=== PATIENT | female | born 1930 | race Caucasian/White ===

== ENCOUNTER 2018-03-14 21:43 | Observation (INO) | payer MEDICARE, MEDICAID ==
--- NOTE | 2018-03-14 21:59 | C.PDOC ---
History Of Present Illness Patient presents to the ER with a complaint of not feeling well. She states the nurse at daycare checked her blood pressure and noticed it was 220/120. Patient took her diovan and amlodipine ER TECH, she notes she feels better here in the ER. Patient also states she has an Rx for an echo which she wants done here. Denies chest pain, SOB, nausea, or vomiting. Time Seen by Provider: 03/14/18 21:58 Chief Complaint (Nursing): High Blood Pressure History Per: Patient History/Exam Limitations: no limitations Onset/Duration Of Symptoms: Hrs Current Symptoms Are (Timing): Still Present Associated Symptoms: denies: Chest Pain, Dyspnea, Dizziness, Blurred Vision, Focal Weakness, Headache Quality Of Symptoms: Asymptomatic Severity: Moderate Pain Scale Rating Of: 4 Exacerbating Factor(s): Pos: None Recent travel outside of the [place]: No Additional History Per: Patient Past Medical History Reviewed: Historical Data, Nursing Documentation, Vital Signs Vital Signs: Last Vital Signs Temp 98 F 03/14/18 21:52 Pulse 72 03/14/18 22:00 Resp 14 03/14/18 21:52 BP 171/84 H 03/14/18 21:52 Pulse Ox 98 03/14/18 22:56 - Medical History PMH: HTN Surgical History: No Surg Hx Family History: States: No Known Family Hx - Social History Hx Alcohol Use: No Hx Substance Use: No Review Of Systems Constitutional: Negative for: Fever, Chills Eyes: Negative for: Vision Change ENT: Negative for: Throat Pain Cardiovascular: Negative for: Chest Pain, Palpitations Respiratory: Negative for: Cough, Shortness of Breath Gastrointestinal: Negative for: Nausea, Vomiting Genitourinary: Negative for: Dysuria Musculoskeletal: Negative for: Back Pain Skin: Negative for: Rash Neurological: Negative for: Weakness, Numbness Psych: Positive for: Anxiety Physical Exam - Physical Exam Appears: Non-toxic, No Acute Distress Skin: Warm, Dry Head: Normacephalic Eye(s): bilateral: Normal Inspection Oral Mucosa: Moist Neck: Supple Chest: Symmetrical, No Tenderness Cardiovascular: Rhythm Regular Respiratory: No Rales, No Rhonchi, No Wheezing Gastrointestinal/Abdominal: Soft, No Tenderness Back: Normal Inspection Extremity: No Tenderness Extremity: Bilateral: Atraumatic Pulses: Left Dorsalis Pedis: Normal, Right Dorsalis Pedis: Normal Neurological/Psych: Oriented x3 Gait: Steady ED Course And Treatment - Laboratory Results Result Diagrams: 03/14/18 23:01 03/14/18 23:01 ECG: Interpreted By Me, Viewed By Me ECG Rhythm: Sinus Rhythm (58), Nonspecific Changes O2 Sat by Pulse Oximetry: 98 (Room air) Pulse Ox Interpretation: Normal - Radiology CXR: Interpreted by Me, Viewed By Me CXR Interpretation: No: Infiltrates, Fracture, Pnemothorax Disposition Discussed With Dr.: Tremayne Bingham Comment: accepted the pt on his service and took over the care at 11:56 PM Counseled Patient/Family Regarding: Studies Performed, Diagnosis - Disposition Disposition: HOSPITALIZED Disposition Time: 21:59 Condition: FAIR Forms: [facility] (Romansh) - POA Present On Arrival: Poor Glycemic Control - Clinical Impression Clinical Impression: HTN (hypertension), CHF (congestive heart failure), Hypokalemia, Hyponatremia - Scribe Statement The provider has reviewed the documentation as recorded by the Scribe Roly Levy All medical record entries made by the Scribe were at my direction and personally dictated by me. I have reviewed the chart and agree that the record accurately reflects my personal performance of the history, physical exam, medical decision making, and the department course for this patient. I have also personally directed, reviewed, and agree with the discharge instructions and disposition. Decision To Admit - Pt Status Changed To: Hospital Disposition Of: Observation - . Bed Request Type: Telemetry Admitting Physician: Tremayne Bingham Patient Diagnosis: HTN (hypertension), CHF (congestive heart failure), Hypokalemia, Hyponatremia
[2018-03-14 23:04] LABS: BASO # 0.1 K/uL (0.0-0.2); BASO % 0.6 % (0.0-2.0); EOS # 0.2 K/uL (0.0-0.7); EOS % 2.2 % (0.0-4.0); HEMOGLOBIN 11.5 g/dL (11.0-16.0); LYMPH # 1.6 K/uL (1.0-4.3); LYMPH % 16.4 % (20.0-40.0); MEAN CORPUSCULAR HEMOGLOBIN 30.4 pg (27.0-31.0); MEAN CORPUSCULAR HGB CONC 33.7 g/dL (33.0-37.0); MEAN PLATELET VOLUME 8.3 fL (7.2-11.7); MONO # 2.5 K/uL (0.0-0.8); MONO % 26.1 % (0.0-10.0); NEUT # 5.2 K/uL (1.8-7.0); NEUT % 54.7 % (50.0-75.0); PLATELET COUNT 257 K/uL (130-400); RBC 3.78 Mil/uL (3.80-5.20); WHITE BLOOD COUNT 9.6 K/uL (4.8-10.8)
[2018-03-14 23:12] LABS: INR 1.1; PROTHROMBIN TIME 11.5 SECONDS (9.7-12.2)
[2018-03-14 23:18] LABS: ALB/GLOB RATIO 1.3 (1.0-2.1); ALBUMIN 4.4 g/dL (3.5-5.0); ALT/SGPT 16 U/L (9-52); AST/SGOT 19 U/L (14-36); BLOOD UREA NITROGEN 14 mg/dL (7-17); CALCIUM 8.7 mg/dl (8.6-10.4); GFR AFRICAN-AMERICAN > 60; GFR NON-AFRICAN AMERICAN 59; LIPASE 89 U/L (23-300)
[2018-03-14] MEDS ORDERED: Potassium Chloride 10 mEq ER Tab PO STA (23:21)
[2018-03-14 23:25] LABS: SQUAMOUS EPITHIAL < 1 /hpf (0-5); URINE BACTERIA RARE (<OCC); URINE BILIRUBIN NEGATIVE (NEGATIVE); URINE BLOOD 1+ (NEGATIVE); URINE CLARITY Clear (Clear); URINE COLOR Colorless (YELLOW); URINE GLUCOSE (UA) NORMAL (Normal); URINE LEUKOCYTE ESTERASE NEG Leu/uL (Negative); URINE PROTEIN NEGATIVE (NEGATIVE); URINE UROBILINOGEN NORMAL mg/dL (0.2-1.0)
[2018-03-14 23:30] LABS: B-TYPE NATRIURETIC PEPTIDE 2050 pg/mL (0-900)
[2018-03-14] MEDS ORDERED: Potassium Chloride 10 mEq ER Tab PO ONE (23:36)
[2018-03-15] MEDS ORDERED: Potassium Chloride 10 mEq ER Tab PO ONE (00:25)
[2018-03-15 01:14] LABS: ANISOCYTOSIS SLIGHT; EOSINOPHIL 3 % (0-4); LYMPHOCYTE 17 % (20-40); MONOCYTE 27 % (0-10); NEUTROPHIL 53 % (50-75); PLATELET ESTIMATE NORMAL (NORMAL); POIKILOCYTOSIS SLIGHT; TOTAL CELLS COUNTED 100
[2018-03-15 03:23] VITALS: RESP 20
[2018-03-15 05:43] LABS: CK-MB 1.15 ng/mL (0.0-3.38)
[2018-03-15 09:00] LABS: BLOOD UREA NITROGEN 14 mg/dL (7-17); CALCIUM 8.4 mg/dl (8.6-10.4); GFR AFRICAN-AMERICAN > 60; GFR NON-AFRICAN AMERICAN 59
[2018-03-15] MEDS: (Novolog) Insulin Aspart, Recombinant 100 u/ml 10 ml vial SC SCH ×4 (09:20→21:56)
[2018-03-15] MEDS ORDERED: Potassium Chloride 20 mEq ER Tab PO ONE (10:30)
[2018-03-15] MEDS: Enoxaparin 40 mg Syringe SC SCH (10:34)
--- NOTE | 2018-03-15 11:14 | RAD ---
Date of service: 03/14/2018 PROCEDURE: CHEST RADIOGRAPH, 1 VIEW HISTORY: SOB COMPARISON: None available. FINDINGS: LUNGS: Prominence of the interstitial markings, likely chronic. No focal consolidate. PLEURA: No pneumothorax or pleural fluid seen. CARDIOVASCULAR: Atherosclerotic aortic calcifications. Cardiomediastinal silhouette enlarged. OSSEOUS STRUCTURES: Degenerative changes. VISUALIZED UPPER ABDOMEN: Normal. OTHER FINDINGS: None. IMPRESSION: No active disease.
[2018-03-15 11:59] LABS: CK-MB 1.13 ng/mL (0.0-3.38); TROPONIN I 0.02 ng/mL (0.00-0.120)
[2018-03-16] MEDS: (Novolog) Insulin Aspart, Recombinant 100 u/ml 10 ml vial SC SCH ×2 (07:18→11:52)
--- NOTE | 2018-03-16 07:35 | CP.PCM.HP ---
History of Present Illness - History of Present Illness History of Present Illness: Chief Complaint: High Blood Pressure History Of Present Illness Patient presents to the ER with a complaint of not feeling well. She states the nurse at daycare checked her blood pressure and noticed it was 220/120. 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 Patient also states she has an Rx for an echo which she wants done here. Denies chest pain, SOB, nausea, or vomiting. Past Patient History - Past Medical History & Family History Past Medical History?: Yes - Past Social History Smoking Status: Never Smoked - CARDIAC Hx Hypercholesterolemia: Yes Hx Hypertension: Yes - PULMONARY Hx Bronchitis: Yes Hx Pneumonia: Yes - NEUROLOGICAL Hx Neurological Disorder: No - HEENT Hx Glaucoma: Yes - RENAL Hx Chronic Kidney Disease: No - ENDOCRINE/METABOLIC Hx Diabetes Mellitus Type 2: Yes Hx Hyperthyroidism: Yes - HEMATOLOGICAL/ONCOLOGICAL Hx Blood Disorders: No - INTEGUMENTARY Hx Dermatological Problems: No - MUSCULOSKELETAL/RHEUMATOLOGICAL Hx Osteoarthritis: Yes - GASTROINTESTINAL Hx Gastrointestinal Disorders: No - GENITOURINARY/GYNECOLOGICAL Hx Genitourinary Disorders: No - PSYCHIATRIC Hx Anxiety: Yes Hx Substance Use: No - SURGICAL HISTORY Hx Cataract Extraction: Yes ([facility]. Cataract Extraction.) Other/Comment: Left Breast Lumpectomy. - ANESTHESIA Hx Anesthesia: Yes Hx Anesthesia Reactions: No Hx Malignant Hyperthermia: No Has any member of the family had a problem w/ anesthesia?: No Meds Allergies/Adverse Reactions: Allergies Allergy/AdvReac Type Severity Reaction Status Date / Time No Known Allergies Allergy Unverified 03/14/18 21:57 Results - Vital Signs Recent Vital Signs: Last Vital Signs Temp 98.1 F 03/16/18 04:00 Pulse 61 03/16/18 04:00 Resp 20 03/16/18 04:00 BP 91/49 L 03/16/18 04:00 Pulse Ox 95 03/16/18 04:00 - Labs Result Diagrams: 03/14/18 23:01 03/15/18 05:06 Labs: Laboratory Results - last 24 hr 03/15/18 03/15/18 03/15/18 05:06 06:46 11:21 Sodium 132 Potassium 3.2 L Chloride 95 L Carbon Dioxide 24 Anion Gap 16 BUN 14 Creatinine 0.9 Est GFR ( Amer) > 60 Est GFR (Non-Af Amer) 59 POC Glucose (mg/dL) 124 H Random Glucose 110 H Calcium 8.4 L Magnesium 1.7 Total Creatine Kinase 100 100 CK-MB (Mass) 1.15 1.13 Troponin I 0.0230 0.0200 03/15/18 03/15/18 03/15/18 12:01 17:19 21:30 Sodium Potassium Chloride Carbon Dioxide Anion Gap BUN Creatinine Est GFR ( Amer) Est GFR (Non-Af Amer) POC Glucose (mg/dL) 152 H 121 H 128 H Random Glucose Calcium Magnesium Total Creatine Kinase CK-MB (Mass) Troponin I 03/16/18 06:43 Sodium Potassium Chloride Carbon Dioxide Anion Gap BUN Creatinine Est GFR ( Amer) Est GFR (Non-Af Amer) POC Glucose (mg/dL) 137 H Random Glucose Calcium Magnesium Total Creatine Kinase CK-MB (Mass) Troponin I
[2018-03-16 07:44] LABS: BLOOD UREA NITROGEN 17 mg/dL (7-17); CALCIUM 9.1 mg/dl (8.6-10.4); GFR AFRICAN-AMERICAN > 60; GFR NON-AFRICAN AMERICAN 59
[2018-03-16 08:34] VITALS: BP 121/74; TEMP 98.2; O2SAT 97
[2018-03-16] MEDS ORDERED: Potassium Chloride 20 mEq ER Tab PO SCH (10:00)
[2018-03-16] MEDS: Enoxaparin 40 mg Syringe SC SCH (10:05)
[2018-03-16 10:41] VITALS: PULSE 67
--- NOTE | 2018-03-16 12:15 | CARD ---
APPROVED REPORT Date of service: 03/14/2018 EKG Measurement Heart [id number] <Conclusion> Sinus bradycardia Moderate voltage criteria for LVH, may be normal variant baseline artifacts. Abnormal ECG
--- NOTE | 2018-03-16 13:34 | VASCLAB ---
Date of service: 03/16/2018 PROCEDURE: Renal Artery Duplex Scan HISTORY: Hypertension COMPARISON: None available. TECHNIQUE: Real-time ultrasonography evaluation of the renal arteries were performed. Comparison is made to the aorta. Report prepared by WES Stokes, RVT FINDINGS: AORTA: Patent. Peak systolic velocity 161 centimeters/second RIGHT RENAL ARTERY: Renal artery to aorta ratio: 1.6 * Proximal segment: Patent. Peak systolic velocity 265 centimeters/second * Mid segment: Patent. Peak systolic velocity 234 centimeters/second * Distal segment: Patent. Peak systolic velocity 178 centimeters/second Other findings: Right Kidney measures approximately 11.89 centimeters. LEFT RENAL ARTERY: Renal artery to aorta ratio: 1.2 * Proximal segment: Patent. Peak systolic velocity 193 centimeters/second * Mid segment: Patent. Peak systolic velocity 197 centimeters/second * Distal segment: Patent. Peak systolic velocity 186 centimeters/second Other findings: Left Kidney measures approximately 10.57 centimeters. IMPRESSION: RIGHT: Increased velocities noted at the proximal and mid right renal artery, suggesting 60% stenosis. LEFT: No evidence of significant stenosis in the left renal artery.
--- NOTE | 2018-03-16 14:57 | CP.PCM.PN ---
Subjective - Date & Time of Evaluation Date of Evaluation: 03/16/18 Time of Evaluation: 11:40 - Subjective Subjective: Patient seen an d examined denies any chest pain, sob, dizziness, palpitations , abdominal pain N/V/D bp stable No overnigh t events reported by RN Objective - Vital Signs/Intake and Output Vital Signs (last 24 hours): Temp Pulse Resp BP Pulse Ox 98.2 F 67 20 121/74 97 03/16/18 07:00 03/16/18 07:07 03/16/18 07:00 03/16/18 07:00 03/16/18 08:00 Intake and Output: 03/16/18 03/16/18 06:59 18:59 Intake Total 240 Balance 240 - Medications Medications: Current Medications Alprazolam (Xanax) 0.25 mg PO TID [facility] Stop: 03/22/18 10:01 Last Admin: 03/16/18 13:43 Dose: Not Given Amlodipine Besylate (Norvasc) 5 mg PO DAILY [facility] Last Admin: 03/16/18 10:05 Dose: 5 mg Aspirin (Ecotrin) 81 mg PO DAILY [facility] Last Admin: 03/16/18 10:05 Dose: 81 mg Atenolol (Tenormin) 50 mg PO DAILY [facility] Last Admin: 03/16/18 10:05 Dose: 50 mg Enoxaparin Sodium (Lovenox) 40 mg SC DAILY [facility] Last Admin: 03/16/18 10:05 Dose: Not Given Insulin Aspart (Novolog) [address] [facility] PRN Reason: Protocol Last Admin: 03/16/18 11:52 Dose: Not Given Potassium Chloride (K-Dur 20 Meq Er Tab) 20 meq PO DAILY [facility] Stop: 03/19/18 10:01 Last Admin: 03/16/18 10:07 Dose: 20 meq Rosuvastatin Calcium (Crestor) 10 mg PO HS [facility] Last Admin: 03/15/18 21:56 Dose: Not Given - Labs Labs: 03/14/18 23:01 03/16/18 07:23 PT 11.5 SECONDS (9.7-12.2) 03/14/18 23:01 INR 1.1 03/14/18 23:01 APTT 34 SECONDS (21-34) 03/14/18 23:01 Assessment and Plan - Assessment and Plan (Free Text) Assessment: a/p 87 YR female with pmhx of HTN, anxiety admitted with Hypertensive emergency, hyponatremia Bp stable with adjustment of medications todays labs - unremarkable Echo done- result pending Renal US- R renal 60% stenosis D/w Dr. Bingham , cleared for discharge home today and f/u with Dr. Bingham office in 1 week Discharge plan discussed with patient who understand and agrees with plan
--- NOTE | 2018-03-16 17:30 | PCM.HF ---
Heart Failure Core Measure - Heart Failure Ejection Fraction: 40 % or Greater AIMEE Inhibitor Prescribed: No Contraindication/Reason for not providing: on arb Beta-Mata Prescribed: Bisoprolol Angiotensin II Receptor Mata Prescribed: Yes AnticoagulationTherapy for Atrial Fibrillation/Atrialflutter: No Contraindication/Reason for not providing: no hx of afib - Follow up Will be discharged to: Home Follow Up Date (must be within 7 days from discharge): 03/22/18 Follow Up Time: 09:00
--- NOTE | 2018-03-16 23:42 | CP.PCM.DIS ---
Provider - Provider Date of Admission: 03/14/18 23:55 Attending physician: Tremayne Bingham MD Time Spent in preparation of Discharge (in minutes): 45 Hospital Course - Lab Results Lab Results: Most Recent Lab Values WBC 9.6 K/uL (4.8-10.8) 03/14/18 23: RBC 3.78 Mil/uL (3.80-5.20) L 03/14/18 23: Hgb 11.5 g/dL (11.0-16.0) 03/14/18 23: Hct 34.0 % (34.0-47.0) 03/14/18 23: MCV 90.0 fL (81.0-99.0) 03/14/18 23: MCH 30.4 pg (27.0-31.0) 03/14/18 23: MCHC 33.7 g/dL (33.0-37.0) 03/14/18 23: RDW 15.0 % (11.5-14.5) H 03/14/18 23: Plt Count 257 K/uL (130-400) 03/14/18 23: MPV 8.3 fL (7.2-11.7) 03/14/18 23:01 Neut % (Auto) 54.7 % (50.0-75.0) 03/14/18 23: Lymph % (Auto) 16.4 % (20.0-40.0) L 03/14/18 23: Gregg % (Auto) 26.1 % (0.0-10.0) H 03/14/18 23: Eos % (Auto) 2.2 % (0.0-4.0) 03/14/18 23: Baso % (Auto) 0.6 % (0.0-2.0) 03/14/18 23: Neut # (Auto) 5.2 K/uL (1.8-7.0) 03/14/18 23: Lymph # (Auto) 1.6 K/uL (1.0-4.3) 03/14/18 23:01 Gregg # (Auto) 2.5 K/uL (0.0-0.8) H 03/14/18 23: Eos # (Auto) 0.2 K/uL (0.0-0.7) 03/14/18 23:01 Baso # (Auto) 0.1 K/uL (0.0-0.2) 03/14/18 23:01 Neutrophils % (Manual) 53 % (50-75) 03/14/18 23:01 Lymphocytes % (Manual) 17 % (20-40) L 03/14/18 23:01 Monocytes % (Manual) 27 % (0-10) H 03/14/18 23:01 Eosinophils % (Manual) 3 % (0-4) 03/14/18 23:01 Platelet Estimate Normal (NORMAL) 03/14/18 23:01 Poikilocytosis (manual Slight 03/14/18 23:01 Anisocytosis (manual) Slight 03/14/18 23:01 PT 11.5 SECONDS (9.7-12.2) 03/14/18 23:01 INR 1.1 03/14/18 23:01 APTT 34 SECONDS (21-34) 03/14/18 23:01 Sodium 144 mmol/L (132-148) 03/16/18 07:23 Potassium 4.4 mmol/L (3.6-5.2) 03/16/18 07:23 Chloride 104 mmol/L (98-107) 03/16/18 07:23 Carbon Dioxide 29 mmol/L (22-30) 03/16/18 07:23 Anion Gap 15 (10-20) 03/16/18 07:23 BUN 17 mg/dL (7-17) 03/16/18 07:23 Creatinine 0.9 mg/dL (0.7-1.2) 03/16/18 07:23 Est GFR ( Amer) > 60 03/16/18 07:23 Est GFR (Non-Af Amer) 59 03/16/18 07:23 POC Glucose (mg/dL) 147 mg/dL (65-110) H 03/16/18 11:07 Random Glucose 134 mg/dL (65-105) H 03/16/18 07:23 Calcium 9.1 mg/dl (8.6-10.4) 03/16/18 07:23 Magnesium 1.7 mg/dL (1.6-2.3) 03/15/18 05:06 Total Bilirubin 0.8 mg/dL (0.2-1.3) 03/14/18 23:01 AST 19 U/L (14-36) 03/14/18 23:01 ALT 16 U/L (9-52) 03/14/18 23:01 Alkaline Phosphatase 74 U/L (38-126) 03/14/18 23:01 Total Creatine Kinase 100 U/L (30-135) 03/15/18 11:21 CK-MB (Mass) 1.13 ng/mL (0.0-3.38) 03/15/18 11:21 Troponin I 0.0200 ng/mL (0.00-0.120) 03/15/18 11:21 NT-Pro-B Natriuret Pep 2050 pg/mL (0-900) H 03/14/18 23:01 Total Protein 7.8 g/dL (6.3-8.3) 03/14/18 23:01 Albumin 4.4 g/dL (3.5-5.0) 03/14/18 23:01 Globulin 3.4 gm/dL (2.2-3.9) 03/14/18 23:01 Albumin/Globulin Ratio 1.3 (1.0-2.1) 03/14/18 23:01 Lipase 89 U/L (23-300) 03/14/18 23:01 Urine Color Colorless (YELLOW) 03/14/18 22:34 Urine Clarity Clear (Clear) 03/14/18 22:34 Urine pH 5.0 (5.0-8.0) 03/14/18 22:34 Ur Specific Villalba 1.003 (1.003-1.030) 03/14/18 22:34 Urine Protein Negative mg/dL (NEGATIVE) 03/14/18 22:34 Urine Glucose (UA) Normal mg/dL (Normal) 03/14/18 22:34 Urine Ketones Negative mg/dL (NEGATIVE) 03/14/18 22:34 Urine Blood 1+ (NEGATIVE) H 03/14/18 22:34 Urine Nitrate Negative (NEGATIVE) 03/14/18 22:34 Urine Bilirubin Negative (NEGATIVE) 03/14/18 22:34 Urine Urobilinogen Normal mg/dL (0.2-1.0) 03/14/18 22:34 Ur Leukocyte Esterase Neg Radha/uL (Negative) 03/14/18 22:34 Urine WBC (Auto) < 1 /hpf (0-5) 03/14/18 22:34 Urine RBC (Auto) 3 /hpf (0-3) 03/14/18 22:34 Ur Squamous Epith Cells < 1 /hpf (0-5) 03/14/18 22:34 Urine Bacteria Rare (<OCC) 03/14/18 22:34 - Hospital Course Hospital Course: Pt is for discharge today Discharge Plan - Discharge Medications Prescriptions: Valsartan [Diovan] 160 mg PO DAILY #30 tablet amLODIPine [Norvasc] 1 tab PO DAILY #30 tab Atenolol [Tenormin] 50 mg PO DAILY #30 tab - Follow Up Plan Condition: FAIR Disposition: HOME/ ROUTINE Instructions: Heart Healthy Diet, High Blood Pressure (DC), Hyponatremia (DC), Heart Failure (DC), Hypokalemia (DC) Additional Instructions: Please f/u with Dr. Bingham office in 1 week Please continue medication as per Med. rec. 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
== END 2018-03-16 15:45 | disposition home or self-care (01) ==
LOC: C.ER 21:43 → C.9E 23:55 → C.6T 03-15 03:02
PROVIDERS: ADMIT Internal Medicine; ATTEND Internal Medicine
DX: I16.1 Hypertensive emergency (principal); I11.0 Hypertensive heart disease with heart failure; I50.9 Heart failure, unspecified; E87.6 Hypokalemia; E87.1 Hypo-osmolality and hyponatremia; E78.00 Pure hypercholesterolemia, unspecified; E11.9 Type 2 diabetes mellitus without complications; E05.90 Thyrotoxicosis, unspecified without thyrotoxic crisis or storm; F41.9 Anxiety disorder, unspecified
CPT/HCPCS: 36415; 71045; 80048; 80053; 81001; 82948; 83690; 83735; 83880; 84484; 85025; 85610; 85730; 93005; 93306; 93975; 97116; 97162; 99285; G0378; G8978; G8979